=== PATIENT | female | born 1955 | race American Indian/Alaskan Native ===

== ENCOUNTER 2017-07-08 08:54 | Outpatient (CLI) | payer BC ==
--- NOTE | 2017-07-08 16:14 | XRay Report ---
XRAY RIGHT HIP TWO VIEWS: 07/08/17 08:54:00 CLINICAL: Right hip pain. FINDINGS: Obese body habitus. Moderate osteoarthritis of the right hip with joint space narrowing and superior acetabular eburnation and irregularity. Milder osteoarthritis of the left hip. No fracture or dislocation. The pelvic bones are intact except for bilateral iliac wing whiskering. Phleboliths in the pelvis and otherwise normal soft tissues. IMPRESSION: Osteoarthritis of the hips, right worse than left.
== END 2017-07-08 08:55 | disposition home or self-care (01) ==
LOC: SPVIMAG 08:54
PROVIDERS: ATTEND Orthopaedic Surgery Sports Medicine
DX: M16.0 Bilateral primary osteoarthritis of hip (principal); I87.8 Other specified disorders of veins